=== PATIENT | male | born 1955 | race Asian ===

== ENCOUNTER 2020-02-21 16:30 | Emergency (ER) | payer BC ==
[~2020-02-21] VITALS: Ht 182.9 cm; Wt 87.1 kg
[2020-02-21 16:39] VITALS: TEMP 99.1
[2020-02-21 16:59] LABS: PLATELET COUNT 142 K/uL (142-355)
[2020-02-21 17:34] LABS: PARTIAL THROMBOPLASTIN TIME 25.6 SECONDS (24.5-33.6)
[2020-02-21 17:53] LABS: POTASSIUM 3.8 mmol/L (3.6-5.2)
[2020-02-21 18:15] VITALS: BP 131/74
== END 2020-02-21 18:31 | disposition short-term general hospital (02) ==
LOC: ED 16:30
PROVIDERS: Family Medicine
DX: I21.3 ST elevation (STEMI) myocardial infarction of unspecified site (principal); F17.210 Nicotine dependence, cigarettes, uncomplicated
CPT/HCPCS: 80053; 82550; 84484; 85027; 85610; 85730; 87635; 93005; 96374; 99285; J1644; J2405; U0003

== ENCOUNTER 2022-03-15 08:56 | Outpatient (CLI) | payer BC | END 2022-03-15 20:29 | disposition home or self-care (01) | LOC: NM 08:56 | PROVIDERS: ATTEND Nurse Practitioner | DX: I10 Essential (primary) hypertension (principal); E78.2 Mixed hyperlipidemia; I25.10 Atherosclerotic heart disease of native coronary artery without angina pectoris; R07.89 Other chest pain | CPT/HCPCS: A9500 ==

== ENCOUNTER 2022-04-01 14:13 | Outpatient (CLI) | payer BC ==
[2022-04-01 14:31] LABS: PLATELET COUNT 198 K/uL (142-355)
[2022-04-01 14:44] LABS: POTASSIUM 3.8 mmol/L (3.6-5.2)
== END 2022-04-01 19:08 | disposition home or self-care (01) ==
LOC: LABW 14:13
PROVIDERS: ATTEND Specialist
DX: Z01.810 Encounter for preprocedural cardiovascular examination (principal); R94.39 Abnormal result of other cardiovascular function study
CPT/HCPCS: 36415; 80048; 85027